=== PATIENT | female | born 1975 | race Caucasian/White ===

== ENCOUNTER 2021-08-28 09:17 | Emergency (ER) | payer BC, SELFPAY ==
[2021-08-28 09:31] VITALS: BP 143/87; PULSE 95; RESP 16; TEMP 36.9; O2SAT 99
--- NOTE | 2021-08-28 09:52 | ED.EYEPROB ---
HPI - Eye Problem General Chief complaint: Eye Problems Stated complaint: Eye Pain Time Seen by Provider: 08/28/21 09:52 Source: patient Mode of arrival: ambulatory Limitations: no limitations History of Present Illness HPI Narrative: 45-year-old female presents with complaint of redness, itching, irritation to left eye for 2 days. Removed her contact yesterday. States that she did not sleep in her contact the night before redness started which she does normally sleep and contacts. No vision change, denies pain. All systems reviewed and negative except as noted above. Related Data Allergies Allergy/AdvReac Type Severity Reaction Status Date / Time No Known Allergies Verified 08/28/21 09:46 Review of Systems Review of Systems: CONSTITUTIONAL: Denies fever, chills, or sweats. EYES: Denies visual changes. Reports redness, discharge, irritation. ENT: Denies rhinorrhea, congestion, sore throat, or otalgia. CARDIOVASCULAR: Denies chest pain, palpitations, or edema. RESPIRATORY: Denies cough or dyspnea. GASTROINTESTINAL: Denies abdominal pain, nausea, vomiting, or diarrhea. GENITOURINARY: Denies dysuria or hematuria. SKIN: Denies rash or itching. MUSCULOSKELETAL: Denies back pain, joint pain, or myalgia. NEUROLOGIC: Denies headache, numbness, or weakness. PSYCHIATRIC: Denies anxiety or depression. All other systems reviewed are negative, except as documented in HPI. PMFSH Comments At time of signature, agree with nursing past medical, surgical, social and family history. There is no relevant family history pertinent to the presenting complaint. Exam Narrative: GENERAL: This is a well-nourished, well-developed patient, in no apparent distress. HEAD: normocephalic, atraumatic. EYES: PERRL. Sclera and conjunctive a erythematous and injected to left eye. Ropey, purulent drainage from left eye. Vision is grossly intact. EARS: External ears normal NOSE: External nose normal NECK: Neck supple, non-tender without lymphadenopathy, masses or thyromegaly. CARDIOVASCULAR: Regular rate and rhythm without murmurs, gallops, or rubs. RESPIRATORY: Clear to auscultation. Breath sounds equal bilaterally. No wheezes, rales, or rhonchi. SKIN: warm, Dry, intact with no suspicious lesions or rash, good texture and turgor. NEURO: awake, alert, and oriented to person, place and time. There were no obvious focal neurologic abnormalities. EXTREMITIES: Normal range of motion to all extremities. Course Course Level of Care: Express Care Visit Vital Signs Vital signs: Vital Signs Temperature 36.9 C 08/28/21 09:31 Pulse Rate 95 08/28/21 09:31 Respiratory Rate 16 08/28/21 09:31 Blood Pressure 143/87 H 08/28/21 09:31 Pulse Oximetry 99 08/28/21 09:31 Temperature 36.9 C 08/28/21 09:31 Pulse Rate 95 08/28/21 09:31 Respiratory Rate 16 08/28/21 09:31 Blood Pressure 143/87 H 08/28/21 09:31 Pulse Oximetry 99 08/28/21 09:31 Reviewed MDM - Eye Problem MDM Narrative Medical decision making narrative: Patient is aware of diagnosis, understands and agrees to treatment plan. Anticipatory guidance given. Patient agrees to follow-up as directed and is aware of reasons to seek care at the emergency department. Portions of this record may have been created with voice recognition software Discharge Plan Discharge Clinical Impression: Acute bacterial conjunctivitis of left eye Patient Disposition: Home, Self-Care Condition: Stable Instructions: Conjunctivitis (ED) Additional Instructions: Use antibiotic drops as prescribed. Wash hands before and after placing drops. Throw away her contacts and start a new pair after all symptoms have resolved. If you have any change in vision or pain follow-up with an artificial glass eye maker. Prescriptions: New ofloxacin 0.3 % drops See Rx Instructions .ROUTE .COMPLEX Qty: 10 RF: 0 Follow-up/Referrals: PHYSICIAN NOT ON STAFF,NONSTAFF [Primary Care Provider] -
== END 2021-08-28 10:01 | disposition home or self-care (01) ==
PROVIDERS: Emergency Provider Nurse Practitioner Family
DX: H10.32 Unspecified acute conjunctivitis, left eye (principal)
CPT/HCPCS: 99213; G0463

== ENCOUNTER 2023-06-21 11:11 | Outpatient (CLI) | payer BC, SELFPAY ==
--- NOTE | ~2023-06-21 | US_ITS ---
EXAMINATION: US pelvic complete w TV DATE: 06/21/2023 12:26 INDICATION: Pelvic and perineal pain. TECHNIQUE: Multiple transabdominal and transvaginal sonographic images of the pelvis were obtained. COMPARISON: None. FINDINGS: TRANSABDOMINAL ULTRASOUND: The uterus measures 7.4 x 4.4 x 5.2 cm. There is no free fluid in the pelvis. TRANSVAGINAL ULTRASOUND: The endometrial complex measures 10 mm in thickness. There are nabothian cysts in the cervix. The rig ht ovary is not visualized. The left ovary measures 2.1 x 1.5 x 2.5 cm. There is normal vascular flow in left ovary. IMPRESSION: 1. No etiology for the patient's symptoms. Right ovary not visualized. Reviewed, dictated and finalized at location A.
== END 2023-06-21 11:12 ==
PROVIDERS: Visit Provider Family Medicine
DX: R10.2 Pelvic and perineal pain (principal)
CPT/HCPCS: 76830; 76856